=== PATIENT | female | born 1955 | race Caucasian/White ===

== ENCOUNTER 2024-06-30 22:03 | Emergency (ER) | payer MEDICARE, SELFPAY ==
[2024-06-30 22:08] VITALS: BP 203/129; PULSE 81; TEMP 36.7; O2SAT 100; BMI 32.9
--- NOTE | 2024-06-30 22:19 | XR_ITS ---
The [address] [address] Patient Name: BHAVNA PACE MRN: [id number] date: 1955 Sex: F Assigned Patient Location: ER Current Patient Location: ED.MAIN Accession/Order Number: [id number] Exam Date: 06/30/2024 22:38 Report Date: 07/01/2024 00:07 At the request of: JANETT NESS Procedure: XR hand LT min 3V XR hand LT min 3V, 06/30/2024 9:38 PM CDT: History: fall. . Comparison: None. Technique: 3 views left hand Findings/Impression: There is no acute fracture or malalignment. There are old tiny ulnar styloid avulsion fractures. Soft tissues are normal. Electronically authenticated by: HELEN SEE Date: 07/01/2024 00:07
--- NOTE | 2024-06-30 22:19 | XR_ITS ---
The [address] [address] Patient Name: BHAVNA PACE MRN: [id number] date: 1955 Sex: F Assigned Patient Location: ER Current Patient Location: ED.MAIN Accession/Order Number: [id number] Exam Date: 06/30/2024 22:38 Report Date: 07/01/2024 00:06 At the request of: JANETT NESS Procedure: XR knee RT 3V XR knee RT 3V, 06/30/2024 9:38 PM CDT: History: fall. . Comparison: None. Technique: 3 views right knee Findings/Impression: There is no acute fracture or malalignment. There is no knee joint effusion. Electronically authenticated by: HELEN SEE Date: 07/01/2024 00:06
--- NOTE | 2024-06-30 22:19 | ED.LOWEXI1 ---
HPI HPI - Extremity Injury (Lower) General Chief Complaint: Extremity Injury, Upper Stated Complaint: Hand/Knee Injuries from Fall Time Seen by Provider: 06/30/24 22:05 Source: patient Mode of arrival: walk-in History of Present Illness HPI Narrative: fell this AM during her AM walk. injured left hand and right knee. Able to walk with a limp but limited use of the hand due to pain . No weakness or numbness Related Data Allergies Allergy/AdvReac Type Severity Reaction Status Date / Time codeine Allergy Mild Nausea Verified 06/30/24 22:16 Opioid HPI Opioid Management Most Recent Pain and Opioid Data: Last Pain Scale 8 06/30/24 22:20 Review of Systems ROS Status of ROS 10 or more systems reviewed and unremarkable except as noted in history and below PFSH PFSH Social History Little interest or pleasure in doing things: not at all Feeling down, depressed, or hopeless: not at all Exam Constitutional Vital Signs, click to edit/add: Last Vital Signs Temp 98.1 F 06/30/24 22:08 Pulse 81 06/30/24 22:08 Resp 18 06/30/24 22:08 BP 203/129 H 06/30/24 22:08 Pulse Ox 100 06/30/24 22:08 O2 Del Method Room Air 06/30/24 22:08 Common normals: no apparent distress, average body habitus, oriented x3, no limitations, healthy appearing and alert [facility] Common normals: normocephalic and head/scalp atraumatic Eye Common normals: EOMs intact bilaterally and conjunctivae normal Respiratory Common normals: normal respiratory effort, no retractions, no use of accessory muscles and clear to auscultation bilaterally Cardio Common normals: regular rate, regular rhythm, S1 normal heart sound and S2 normal heart sound GI Common normals: Normal to inspection, nondistended, normoactive bowel sounds present, soft to palpation and non-tender Back & Pelvis Common normals: thoracic and lumbar spine normal to inspection Extremity Extremity image (front): 1. mild abrasion right knee 2. abrasion and minor wounds dorsum left hand. No swelling . Pain with ROM Neuro Common normals: oriented x3, CN's II-XII intact bilaterally, moves all extremities and no focal motor deficits Psych Appearance: grossly normal Course Vital Signs Vital signs: Vital Signs Temperature 98.1 F 06/30/24 22:08 Pulse Rate 81 06/30/24 22:08 Respiratory Rate 18 06/30/24 22:08 Blood Pressure 203/129 H 06/30/24 22:08 Pulse Oximetry 100 06/30/24 22:08 Oxygen Delivery Method Room Air 06/30/24 22:08 Temperature 98.1 F 06/30/24 22:08 Pulse Rate 81 06/30/24 22:08 Respiratory Rate 18 06/30/24 22:08 Blood Pressure 203/129 H 06/30/24 22:08 Pulse Oximetry 100 06/30/24 22:08 Oxygen Delivery Method Room Air 06/30/24 22:08 MDM - Extremity Injury (Lower) MDM Narrative Medical decision making narrative: patient presents after trip and fall wherein she injured her left hand and right knee. xrays neg for any acute findings. Has abrasions at both sites. placed in splint for the left hand and discharged to follow up with her doctor Discharge Plan Discharge Chief Complaint: Extremity Injury, Upper Clinical Impression: Abrasion of hand, left, Contusion of knee, right Patient Disposition: Home, Self-Care Print Language: Greenlandic Instructions: Contusion in Adults (ED), Abrasion (ED) Referrals: Severiano Almonte DO [Primary Care Provider] - 1 week
[2024-06-30] MEDS: ADACEL DIPH,PERTUSS(ACELL),TET VAC/PF 0.5 ML ADULT SYRINGE IM (22:55)
[2024-06-30 23:35] VITALS: BP 187/102
== END 2024-07-01 00:26 | disposition home or self-care (01) ==
PROVIDERS: Emergency Provider Internal Medicine; PCP Family Medicine
DX: S60.512A Abrasion of left hand, initial encounter (principal); S80.01XA Contusion of right knee, initial encounter; W19.XXXA Unspecified fall, initial encounter; Z23 Encounter for immunization
CPT/HCPCS: 73130; 73562; 90471; 90715; 99284